=== PATIENT | female | born 1945 | race Caucasian/White ===

== ENCOUNTER 2025-09-07 07:36 | Day surgery (SDC) | payer OTHER ==
[2025-09-04 10:36] LABS: PT Prothrombin Time 14.7 SECONDS (10-13.0); PTT, Activated Partial Thromb 36.7 SECONDS (27.2-37.4); Protime INR 1.31
[2025-09-04 10:41] LABS: Anion Gap 6.9 mEq/L (5.0-15.0); BUN Blood Urea Nitrogen 20.0 mg/dL (7-18); Glucose Level 112.0 mg/dL (74-106); Potassium 3.9 mEq/L (3.5-5.1)
[2025-09-04 10:50] LABS: Absolute Lymphocytes (CBC) 2.0 K/uL (0.7-4.9); Hematocrit 44.2 % (36.0-45.0); Hemoglobin 14.6 g/dL (12.0-15.0); MCH 30.6 pg (27.0-35.0); MCHC 33.0 g/dL (32.0-36.0); MCV 92.7 fL (80-100); MPV 8.5 fL (7.6-11.3); Nucleated RBC Absolute Count 0.0 (0-0); Nucleated Red Blood Cells % 0.0 % (0-0); RBC Red Blood Cell Count 4.77 M/uL (3.86-4.86); White Blood Count 8.80 thou/uL (4.3-10.9)
[2025-09-07] MEDS: Ringers Lactate 1,000 ML IV ONE (07:50)
[2025-09-07] MEDS ORDERED: OXYMETAZOLINE HCL 0.05% 30ML NAS ONE (08:11)
[2025-09-07] MEDS ORDERED: BACITRACIN OINTMENT 14 GM TUBE TOP ONE (08:11)
[2025-09-07] MEDS ORDERED: FENTANYL CITR 100 MCG/2 ML ONE (08:17)
[2025-09-07] MEDS ORDERED: KETOROLAC 30 MG/ML INJ ONE (08:17)
[2025-09-07] MEDS ORDERED: LIDOCAINE 2% MPF 5 ML VIAL ONE (08:17)
[2025-09-07] MEDS ORDERED: ONDANSETRON 4 MG/2 ML VIAL ONE (08:17)
[2025-09-07] MEDS ORDERED: ROCURONIUM 50 MG/5 ML VIAL IV ONE (08:17)
[2025-09-07] MEDS: CEFAZOLIN SODIUM 1 GM/VIAL ONE (08:48)
[2025-09-07] MEDS ORDERED: NS 0.9% VIAL 10 ML ONE (09:11)
[2025-09-07] MEDS ORDERED: NA CHLORIDE 0.9% 1,000 ML ONE (09:15)
[2025-09-07] MEDS: LIDOCAINE HCL/EPINEPHRINE 20 ML MDV ONE (09:30)
[2025-09-07] MEDS: HYDROCODONE/APAP 5/325 MG TAB ONE (11:15)
[2025-09-07 12:30] VITALS: BP 138/64; TEMP 97.3; O2SAT 99
--- NOTE | 2025-09-07 23:39 | OP ---
Date of Procedure: 09/07/2025 Surgeon: Shasha Anna Preoperative Diagnoses: 1. Chronic left maxillary sinusitis. 2. 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 Postoperative Diagnoses: 1. Chronic left maxillary sinusitis. 2. Confirmed no evidence of oroantral fistula intraoperatively. Procedures: 1. Left maxillary balloon sinuplasty with lavage using saline irrigation via cannulation. 2. Stereotactic image radio guidance system. Anesthesia: General endotracheal anesthesia was administered. I also infiltrated approximately 3-4 mL of 1% lidocaine with 1:100,000 epinephrine at the area of the left middle turbinate, axilla, and uncinate process. Estimated Blood Loss: Less than 20 mL. Specimens: Mucopurulent secretions were suctioned from the left maxillary sinus cavity and submitted to microbiology for Gram stain, culture, and sensitivity. No evidence of fungal elements visualized. Complications: None. Disposition: Stable. The patient tolerated procedure well. Indications For Procedure: The patient is a pleasant 80-year-old female, who was found on incidental imaging that she had left maxillary sinus opacification from unknown etiology, most likely a left upper maxillary molar tooth. CT scan of the sinuses performed in my office revealed a fairly large defect in the left maxillary antrum. Upon examination in my office after upper dentures were removed, there I would do suspect that there might be a microscopic fistula noted in the left upper gingivobuccal sulcus. Thus, these are indications to bring the patient to operative suite for the above-mentioned procedure. She understood, all questions were answered. Risks versus benefits, complications were explained in detail and a consent form was signed and placed in the chart. Description Of Procedure: The patient was transferred from the preoperative holding area to the operative suite by Department of Anesthesia and placed on the operating room table supine, sedated, intubated in normal fashion. The table was rotated 180 degrees and a head rest was placed. Afrin-soaked nasal pledgets were used for vasoconstriction and decongestion. The stereotactic radio image guidance system was calibrated to the patient's CT scan that was performed in my office and found to be working appropriately. The patient was then prepped and draped. Afrin pledgets were removed and a 0-degree rigid nasal endoscope was used to examine bilateral nasal cavities. I infiltrated approximately 3-4 mL of 1% lidocaine with 1:100,000 epinephrine at the axilla of the left middle turbinates and left uncinate process. A Marsteller elevator was used to medialize the left middle turbinate to expose the left maxillary antrum. Confirmation of the left maxillary antrum was performed with the stereotactic radio image guidance system. A Soundstache balloon sinuplasty wand was introduced into the left maxillary antrum upon confirmation with radio image guidance and the balloon was inserted into the left maxillary sinus cavity and inflated twice to 12 mmHg and then deflated, and the balloon was retracted. A lavage was connected to the maxillary balloon and I lavaged the left maxillary cavity with approximately 60 mL of sterile saline after collecting mucopurulent secretions with a specimen trap and culture swabs. I then removed any residual mucus and secretions from the left maxillary sinus utilizing an olive tip suction. During irrigation, we visualized the oral cavity to see during lavage if any of that fluid was coming out into the oral cavity and we did not detect any of the irrigation coming into the oral cavity, thus it was confirm that there is no connection at this time and that the mucosa must have spontaneously closed over the fistula. Merogel was placed between the left middle turbinate and the lateral nasal wall to help prevent scarring and to help medialized the middle turbina. The scope was removed. A mustache dressing was placed. She tolerated the procedure well. The patient was then transferred back to Department of Anesthesia and transferred to PACU and discharged home on antibiotic medications and we may need to adjust the antibiotics, possibly start topical antibiotic therapy once we obtained the results from the culture swabs. She will follow up in my office in approximately 1-2 weeks or sooner if needed. PERRY/MARY KATE Voice ID: [id number] Report ID: [id number]
== END 2025-09-07 11:56 | disposition home or self-care (01) ==
LOC: OR 07:36
PROVIDERS: ATTEND Otolaryngology Facial Plastic Surgery
PROC: 09QR4ZZ Repair Left Maxillary Sinus, Percutaneous Endoscopic Approach (ICD-10-PCS; principal; 2025-09-07 08:30)
DX: J32.0 Chronic maxillary sinusitis (principal)
CPT/HCPCS: 93005; 87070 ×2; 85025; 80048; 36415; 87205 ×3; 85610; 85730; 87075 ×2; 87077 ×2; 87186 ×2; 31295; 61782; J1885; A4216; J2704; J2003; J3010; J1100; J2405; J7120; J7040; J0690